=== PATIENT | female | born 1960 | race African-American/Black ===

== ENCOUNTER 2017-02-03 16:51 | Inpatient (IN) | payer OTHER ==
[~2017-02-03] VITALS: Ht 167.6 cm; Wt 172.4 kg
[2017-02-03 17:00] VITALS: BP 111/72
--- NOTE | 2017-02-03 17:57 | Emergency Room Report ---
History of Present Illness General Chief Complaint: Syncope Source: Patient, EMS Present Illness HPI 57-year-old female, history of hypertension, breast cancer status post surgery 4 years ago, not on chemotherapy, presenting with episode of syncope. The patient states that she was with her friends, suddenly felt very faint, became unresponsive, did not fall was on a wheelchair, lasted about 3-4 minutes. Patient was found to be in A. fib with RVR. Patient denies ever having had atrial fibrillation. Patient states that she is on aspirin. Denies ever having a clot in her legs or her lungs, no recent immobilization or surgery Allergies: Coded Allergies: LISINOPRIL (Verified Allergy, Unknown, 02/03/17) PENICILLINS (Verified Allergy, Unknown, 02/03/17) Patient History Past Medical History: see triage record Past Surgical History: none Pertinent Family History: none Reviewed Nursing Documentation: PMH: Agreed, PSxH: Agreed Nursing Documentation-PMH Past Medical History: No History, Except For Hx Hypertension: Yes Hx Diabetes: Yes Hx Cancer: Yes - BREASTS Review of Systems All Other Systems: negative except mentioned in HPI Physical Exam Vital Signs Date Time Temp Pulse Resp B/P (MAP) Pulse Ox O2 Delivery O2 Flow Rate FiO2 02/03/17 16:47 97.7 120 20 129/103 99 Room Air Sp02 EP Interpretation: reviewed, normal General Appearance: normal inspection, well appearing, no apparent distress, alert, GCS 15, non-toxic Head: normocephalic, atraumatic Eyes: bilateral eye normal inspection, bilateral eye PERRL, bilateral eye EOMI ENT: normal ENT inspection, normal pharynx, normal voice, moist mucus membranes Neck: normal inspection, full range of motion, supple Respiratory: normal inspection, lungs clear, normal breath sounds, no respiratory distress, no retraction, no wheezing, speaking full sentences, chest symmetrical Cardiovascular #1: no edema, normal capillary refill, tachycardia, irregularly irregular Cardiovascular #2: 2+ radial (R), 2+ radial (L) Gastrointestinal: normal inspection, non tender, soft, non-distended, no guarding Musculoskeletal: normal inspection, back normal, normal range of motion, non- tender Neurologic: normal inspection, alert, oriented x3, responsive, circulation representative III-XII nml as tested, motor strength/tone normal, sensory intact, speech normal Psychiatric: normal inspection, judgement/insight normal, memory normal Skin: normal inspection, normal color, no rash, warm/dry, well hydrated, normal turgor Procedures Critical Care Time Critical Care Time 40 minutes of CC time 57-year-old female, syncopal episode, felt to be in A. fib with RVR VS: Tachycardic, borderline hypotensive Airway patent. Not hypoxic. PLAN: IV access, labs, troponin, IV fluids, rate control medication Anticipate admission to [facility] vs. [facility] CC time also includes review of labs, review of EMR, discussion with family and paperwork from SNF, d/w hospitalist CC could include dosing of pressors, additional Abx CC time does not include procedures Medical Decision Making Diagnostic Impression: Primary Impression: Atrial fibrillation with rapid ventricular response Additional Impression: Syncope ER Course 57-year-old female with syncopal episode DDX: Vasovagal vs. orthostatic / hypovolemic/dehydration vs. cardiac arrhythmia (SVT , Afib) vs. cardiac (, ACS) vs. PE vs. metabolic (hypoglycemia, hypoxia), vs neuro (seizure, CVA, intracranial bleed) Plan: bgm, cbc, bmp, ekg, cxr consider IVF CT head will be held for now, there was no history of trauma, no neurological signs or symptoms currently ER course: Patient found to be in A. fib with RVR, heart rate ranging from 130s to 150s. Blood pressure is systolic 100, we'll give fluids No further syncopal episodes 0.5mg IV digoxin given PATIENT HR now better controlled HR 115. will admit Disposition: Patient requires admission to [facility] D/W hospitalist Dr Lindquist Please note that this Emergency Department Report was dictated using [email or web address] crib attendant technology software, occasionally this can lead to erroneous entry secondary to interpretation by the dictation equipment EKG Diagnostic Results EP Interpretation: Yes Rate: Tachycardic Rhythm: Atrial fibrillation with RVR ST Segments: ST depressions noted in leads 2 and 3 ASA given to patient: No Rhythm Strip EP Interpretation: Yes Rate: 140 Rhythm: NSR, no PVCs, no ectopy Chest X-ray CXR: Ordered: Yes 1 view Indication: Syncope EP interpretation: Yes Interpretation: Cardiomegaly Impression: Cardiomegaly Electronically signed by Jeffery Hernandez MD Laboratory Tests Test 02/03/17 17:35 12/27/17 19:16 White Blood Count 6.5 K/UL (4.8-10.8) Red Blood Count 5.54 M/UL (4.20-5.40) H Hemoglobin 14.8 G/DL (12.0-16.0) Hematocrit 49.3 % (37.0-47.0) H Mean Corpuscular Volume 89 FL (80-99) Mean Corpuscular Hemoglobin 26.7 PG (27.0-31.0) L Mean Corpuscular Hemoglobin Concent 30.1 G/DL (32.0-36.0) L Red Cell Distribution Width 14.5 % (11.6-14.8) Platelet Count 167 K/UL (150-450) Mean Platelet Volume 7.5 FL (6.5-10.1) Neutrophils (%) (Auto) 68.6 % (45.0-75.0) Lymphocytes (%) (Auto) 17.1 % (20.0-45.0) L Monocytes (%) (Auto) 11.1 % (1.0-10.0) H Eosinophils (%) (Auto) 0.9 % (0.0-3.0) Basophils (%) (Auto) 2.3 % (0.0-2.0) H Prothrombin Time 10.8 SEC (9.30-11.50) Prothrombin Time INR 1.0 (0.9-1.1) PTT 28 SEC (23-33) Sodium Level 141 MMOL/L (136-145) Potassium Level 3.5 MMOL/L (3.5-5.1) Chloride Level 102 MMOL/L (98-107) Carbon Dioxide Level 28 MMOL/L (21-32) Anion Gap 11 mmol/L (5-15) Blood Urea Nitrogen 18 mg/dL (7-18) Creatinine 1.3 MG/DL (0.55-1.30) Estimate Glomerular Filtration Rate 42.5 mL/min (>60) Glucose Level 164 MG/DL (74-106) H Calcium Level 7.7 MG/DL (8.5-10.1) L Total Bilirubin 0.4 MG/DL (0.2-1.0) Aspartate Amino Transferase (AST) 34 U/L (15-37) Alanine Aminotransferase (ALT) 25 U/L (12-78) Alkaline Phosphatase 122 U/L (46-116) H Troponin I 0.017 ng/mL (0.000-0.056) Pro-B-Type Natriuretic Peptide 590 pg/mL (0-125) H Total Protein 8.5 G/DL (6.4-8.2) H Albumin 3.5 G/DL (3.4-5.0) Globulin 5.0 g/dL Albumin/Globulin Ratio 0.7 (1.0-2.7) L Urine Color Pale yellow Urine Appearance Clear Urine pH 5 (4.5-8.0) Urine Specific [place] 1.005 (1.005-1.035) Urine Protein Negative (NEGATIVE) Urine Glucose (UA) Negative (NEGATIVE) Urine Ketones Negative (NEGATIVE) Urine Occult Blood Negative (NEGATIVE) Urine Nitrite Negative (NEGATIVE) Urine Bilirubin Negative (NEGATIVE) Urine Urobilinogen Normal MG/DL (0.0-1.0) Urine Leukocyte Esterase Negative (NEGATIVE) Last Vital Signs Date Time Temp Pulse Resp B/P (MAP) Pulse Ox O2 Delivery O2 Flow Rate FiO2 02/03/17 16:47 97.7 120 20 129/103 99 Room Air Disposition: ADMITTED INPATIENT Condition: Serious Jeffery Hernandez M.D. Feb 03, 2017 17:57
[2017-02-03 18:00] VITALS: BP 111/72
[2017-02-03 18:02] LABS: BASOPHILS % (AUTO) 2.3 % (0.0-2.0); EOSINOPHILS % (AUTO) 0.9 % (0.0-3.0); HEMATOCRIT 49.3 % (37.0-47.0); HEMOGLOBIN 14.8 G/DL (12.0-16.0); LYMPHOCYTES % (AUTO) 17.1 % (20.0-45.0); MEAN CORPUSCULAR VOLUME 89 FL (80-99); MONOCYTES % (AUTO) 11.1 % (1.0-10.0); NEUTROPHILS % (AUTO) 68.6 % (45.0-75.0); PLATELET COUNT 167 K/UL (150-450); RED BLOOD COUNT 5.54 M/UL (4.20-5.40); RED CELL DISTRIBUTION WIDTH 14.5 % (11.6-14.8); WHITE BLOOD COUNT 6.5 K/UL (4.8-10.8)
[2017-02-03 18:10] LABS: ANION GAP 11 mmol/L (5-15); BLOOD UREA NITROGEN 18 mg/dL (7-18); CALCIUM 7.7 MG/DL (8.5-10.1); CARBON DIOXIDE 28 MMOL/L (21-32); CHLORIDE 102 MMOL/L (98-107); CREATININE 1.3 MG/DL (0.55-1.30); POTASSIUM 3.5 MMOL/L (3.5-5.1); SODIUM 141 MMOL/L (136-145)
[2017-02-03 18:25] LABS: ALANINE AMINOTRANSFERASE 25 U/L (12-78); ALBUMIN 3.5 G/DL (3.4-5.0); ALBUMIN/GLOBULIN RATIO 0.7 (1.0-2.7); ALKALINE PHOSPHATASE 122 U/L (46-116); ASPARTATE AMINO TRANSFERASE 34 U/L (15-37); BILIRUBIN,TOTAL 0.4 MG/DL (0.2-1.0)
[2017-02-03 19:00] VITALS: BP_SYST 112; BP_SYST 120; BP_DIAS 70; BP_DIAS 95
[2017-02-03] MEDS ORDERED: Digoxin 0.5mg/2ml Inj IVP ONE (19:30)
[2017-02-03 19:50] LABS: APPEARANCE,URINE CLEAR; BILIRUBIN, URINE NEGATIVE (NEGATIVE); COLOR,URINE PALE YELLOW; GLUCOSE, URINE (UA) NEGATIVE (NEGATIVE); KETONES,URINE NEGATIVE (NEGATIVE); LEUKOCYTE ESTERASE ,URINE NEGATIVE (NEGATIVE); NITRITE,URINE NEGATIVE (NEGATIVE); PH,URINE 5 (4.5-8.0); PROTEIN,URINE NEGATIVE (NEGATIVE); UROBILINOGEN,URINE NORMAL MG/DL (0.0-1.0)
[2017-02-03 20:00] VITALS: BP 107/81
[2017-02-03] MEDS ORDERED: ECOTRIN325 MG ORAL (20:45)
[2017-02-03] MEDS ORDERED: IBUPROFEN600 MG ORAL (20:57)
[2017-02-03] MEDS ORDERED: FLONASE SENSIM9.9 ML NS (20:57)
[2017-02-03] MEDS ORDERED: FELODIPINE ER10 MG PO (20:57)
[2017-02-03] MEDS ORDERED: SPIRONOLACTONE25 MG ORAL (20:57)
[2017-02-03] MEDS ORDERED: ANASTROZOLE1 MG PO (20:57)
[2017-02-03] MEDS ORDERED: MULTI-VITAMIN1 EACH PO (20:57)
[2017-02-03] MEDS ORDERED: NAPROXEN500 M2 ORAL ×2 (20:57→22:14)
[2017-02-03] MEDS ORDERED: K-TAB10 MEQ PO (20:57)
[2017-02-03 21:00] VITALS: BP 102/57
[2017-02-03 21:45] VITALS: BP 130/70
[2017-02-03] MEDS ORDERED: K-DUR10 ME1 ORAL (22:14)
[2017-02-03] MEDS ORDERED: ASPIR 8181 MG ORAL (22:14)
[2017-02-03] MEDS ORDERED: Nitroglycerin Subl 0.4mg tab SL PRN (22:15)
[2017-02-03] MEDS ORDERED: Zolpidem 5mg tab ORAL PRN (22:15)
[2017-02-03] MEDS ORDERED: Acetaminophen 650 MG SUPP RECTAL PRN (22:15)
[2017-02-03] MEDS ORDERED: Enoxaparin 150mg Inj SUBQ SCH (22:15)
[2017-02-03] MEDS ORDERED: Enoxaparin 100mg Inj SUBQ SCH (23:30)
[2017-02-03] MEDS: Metoprolol 25mg tab ORAL SCH (23:34)
[2017-02-03] MEDS: D5 1/2NS w/KCl 20mEq 1,000 ML IV SCH (23:35)
[2017-02-04] VITALS: BP 119/77
[2017-02-04 01:55] LABS: HEMATOCRIT 43.3 % (37.0-47.0); HEMOGLOBIN 13.9 G/DL (12.0-16.0); MEAN CORPUSCULAR VOLUME 89 FL (80-99); PLATELET COUNT 177 K/UL (150-450); RED BLOOD COUNT 4.87 M/UL (4.20-5.40); RED CELL DISTRIBUTION WIDTH 14.6 % (11.6-14.8); WHITE BLOOD COUNT 4.2 K/UL (4.8-10.8)
[2017-02-04 02:05] LABS: INR 1.1 (0.9-1.1)
[2017-02-04 02:15] LABS: ALANINE AMINOTRANSFERASE 17 U/L (12-78); ALBUMIN 2.7 G/DL (3.4-5.0); ALBUMIN/GLOBULIN RATIO 0.5 (1.0-2.7); ALKALINE PHOSPHATASE 100 U/L (46-116); ANION GAP 8 mmol/L (5-15); ASPARTATE AMINO TRANSFERASE 28 U/L (15-37); BILIRUBIN,TOTAL 0.3 MG/DL (0.2-1.0); BLOOD UREA NITROGEN 14 mg/dL (7-18); CALCIUM 7.5 MG/DL (8.5-10.1); CARBON DIOXIDE 27 MMOL/L (21-32); CHLORIDE 108 MMOL/L (98-107); CHOLESTEROL 92 MG/DL (< 200); PHOSPHORUS 3.8 MG/DL (2.5-4.9); POTASSIUM 3.3 MMOL/L (3.5-5.1); SODIUM 143 MMOL/L (136-145)
[2017-02-04 04:00] VITALS: BP 143/72
[2017-02-04 08:00] VITALS: BP 130/83
--- NOTE | 2017-02-04 08:37 | Diagnostic Imaging Report ---
Indication: Cough Technique: One view of the chest Comparison: none Findings: Body habitus limits evaluation. Heart is enlarged. Lungs and pleural spaces are clear. Impression: No acute process Cardiomegaly
[2017-02-04] MEDS ORDERED: Enoxaparin 100mg Inj SUBQ SCH (09:00)
[2017-02-04] MEDS: Aspirin EC 325mg tab ORAL SCH (09:12)
[2017-02-04] MEDS: Spironolactone 25mg tab ORAL SCH (09:13)
[2017-02-04] MEDS: Anastrazole 1mg tab ORAL SCH (09:13)
[2017-02-04] MEDS: Metoprolol 25mg tab ORAL SCH ×2 (09:14→20:00)
[2017-02-04 12:00] VITALS: BP 124/76
[2017-02-04] MEDS: D5 1/2NS w/KCl 20mEq 1,000 ML IV SCH (12:09)
[2017-02-04] MEDS: Enoxaparin 100mg Inj SUBQ SCH ×2 (12:12→22:30)
[2017-02-04] MEDS: Enoxaparin Sodium 300mg/3ml vial SUBQ SCH ×2 (12:13→22:30)
[2017-02-04 16:00] VITALS: BP 123/69
--- NOTE | 2017-02-04 16:38 | History & Physical ---
History and Physical History & Physicial Dictated for Int Med-Dr Lindquist no. [id number]. KHUSHI BAE Feb 04, 2017 16:38
--- NOTE | 2017-02-04 16:51 | Cardiac Electrophysiology PN ---
Subjective Subjective [id number] Objective Last 24 Hour Vital Signs Date Time Temp Pulse Resp B/P (MAP) Pulse Ox O2 Delivery O2 Flow Rate FiO2 02/04/17 12:00 85 02/04/17 12:00 98.1 91 18 124/76 99 Room Air 02/04/17 09:14 98 130/83 02/04/17 08:00 92 02/04/17 08:00 98.4 98 18 130/83 99 Room Air 02/04/17 04:00 98.2 85 16 143/72 100 Room Air 02/04/17 04:00 85 02/04/17 00:00 97.9 102 16 119/77 99 Room Air 02/04/17 00:00 119 02/03/17 23:34 117 130/70 02/03/17 21:45 98.1 117 16 130/70 99 Room Air 02/03/17 21:35 97.7 113 16 102/57 99 Room Air 02/03/17 21:00 97.7 113 16 102/57 99 Room Air 02/03/17 20:14 139 02/03/17 20:00 97.7 135 20 107/81 98 Room Air 02/03/17 19:00 128 18 112/95 99 Room Air 02/03/17 19:00 97.7 143 18 120/70 99 Room Air 02/03/17 18:00 130 20 111/72 98 Room Air 02/03/17 17:00 133 16 111/72 99 Room Air Intake and Output 02/03/17 02/04/17 19:00 07:00 Intake Total 1000 ml 1579 ml Balance 1000 ml 1579 ml Intake Oral 24 ml IV Total 1000 ml 1555 ml # Voids 6 Laboratory Tests Test 02/03/17 17:35 02/03/17 19:16 02/04/17 01:25 White Blood Count 6.5 K/UL (4.8-10.8) 4.2 K/UL (4.8-10.8) L Red Blood Count 5.54 M/UL (4.20-5.40) H 4.87 M/UL (4.20-5.40) Hemoglobin 14.8 G/DL (12.0-16.0) 13.9 G/DL (12.0-16.0) Hematocrit 49.3 % (37.0-47.0) H 43.3 % (37.0-47.0) Mean Corpuscular Volume 89 FL (80-99) 89 FL (80-99) Mean Corpuscular Hemoglobin 26.7 PG (27.0-31.0) L 28.6 PG (27.0-31.0) Mean Corpuscular Hemoglobin Concent 30.1 G/DL (32.0-36.0) L 32.2 G/DL (32.0-36.0) Red Cell Distribution Width 14.5 % (11.6-14.8) 14.6 % (11.6-14.8) Platelet Count 167 K/UL (150-450) 177 K/UL (150-450) Mean Platelet Volume 7.5 FL (6.5-10.1) 8.2 FL (6.5-10.1) Neutrophils (%) (Auto) 68.6 % (45.0-75.0) % (45.0-75.0) Lymphocytes (%) (Auto) 17.1 % (20.0-45.0) L % (20.0-45.0) Monocytes (%) (Auto) 11.1 % (1.0-10.0) H % (1.0-10.0) Eosinophils (%) (Auto) 0.9 % (0.0-3.0) % (0.0-3.0) Basophils (%) (Auto) 2.3 % (0.0-2.0) H % (0.0-2.0) Prothrombin Time 10.8 SEC (9.30-11.50) 11.4 SEC (9.30-11.50) Prothromb Time International Ratio 1.0 (0.9-1.1) 1.1 (0.9-1.1) Activated Partial Thromboplast Time 28 SEC (23-33) 33 SEC (23-33) Sodium Level 141 MMOL/L (136-145) 143 MMOL/L (136-145) Potassium Level 3.5 MMOL/L (3.5-5.1) 3.3 MMOL/L (3.5-5.1) L Chloride Level 102 MMOL/L (98-107) 108 MMOL/L (98-107) H Carbon Dioxide Level 28 MMOL/L (21-32) 27 MMOL/L (21-32) Anion Gap 11 mmol/L (5-15) 8 mmol/L (5-15) Blood Urea Nitrogen 18 mg/dL (7-18) 14 mg/dL (7-18) Creatinine 1.3 MG/DL (0.55-1.30) 1.0 MG/DL (0.55-1.30) Estimat Glomerular Filtration Rate 42.5 mL/min (>60) > 60 mL/min (>60) Glucose Level 164 MG/DL (74-106) H 149 MG/DL (74-106) H Calcium Level 7.7 MG/DL (8.5-10.1) L 7.5 MG/DL (8.5-10.1) L Total Bilirubin 0.4 MG/DL (0.2-1.0) 0.3 MG/DL (0.2-1.0) Aspartate Amino Transf (AST/SGOT) 34 U/L (15-37) 28 U/L (15-37) Alanine Aminotransferase (ALT/SGPT) 25 U/L (12-78) 17 U/L (12-78) Alkaline Phosphatase 122 U/L (46-116) H 100 U/L (46-116) Troponin I 0.017 ng/mL (0.000-0.056) 0.021 ng/mL (0.000-0.056) Pro-B-Type Natriuretic Peptide 590 pg/mL (0-125) H Total Protein 8.5 G/DL (6.4-8.2) H 7.7 G/DL (6.4-8.2) Albumin 3.5 G/DL (3.4-5.0) 2.7 G/DL (3.4-5.0) L Globulin 5.0 g/dL 5.0 g/dL Albumin/Globulin Ratio 0.7 (1.0-2.7) L 0.5 (1.0-2.7) L Urine Color Pale yellow Urine Appearance Clear Urine pH 5 (4.5-8.0) Urine Specific [place] 1.005 (1.005-1.035) Urine Protein Negative (NEGATIVE) Urine Glucose (UA) Negative (NEGATIVE) Urine Ketones Negative (NEGATIVE) Urine Occult Blood Negative (NEGATIVE) Urine Nitrite Negative (NEGATIVE) Urine Bilirubin Negative (NEGATIVE) Urine Urobilinogen Normal MG/DL (0.0-1.0) Urine Leukocyte Esterase Negative (NEGATIVE) Phosphorus Level 3.8 MG/DL (2.5-4.9) Magnesium Level 1.6 MG/DL (1.8-2.4) L Cholesterol Level 92 MG/DL (< 200) Thyroid Stimulating Hormone (TSH) 0.999 uiU/mL (0.358-3.740) YEFRI LABOY Feb 04, 2017 16:51
[2017-02-04 20:00] VITALS: BP 120/78
--- NOTE | 2017-02-04 23:15 | History and Physical Report ---
DATE OF ADMISSION: 02/03/2017 CHIEF COMPLAINT: The patient is a 57-year-old female, who presents with chief complaint of syncopal episode. HISTORY OF PRESENT ILLNESS: The patient saw her primary care physician yesterday, 02/03/2017. The patient was complaining of upper respiratory tract infection symptoms. The patient was told her blood pressure was in the 80s systolic. The patient was told to hold her blood pressure medicines yesterday, 02/03/2017. The patient then went to the pharmacy to fill her prescriptions. The patient had a syncopal episode, which was witnessed by her sister. The patient passed out for approximately five minutes. The patient awoke with slurred speech. The patient describes her feeling as being unsteady. The patient denies the room spinning. The patient presented to [facility] emergency room. The patient was found to be in atrial fibrillation with rapid ventricular rate. The patient is admitted for atrial fibrillation with rapid ventricular rate and syncopal episode. REVIEW OF SYSTEMS: CONSTITUTIONAL: The patient denies weight loss or weight gain. The patient denies fevers or chills. HEENT: The patient denies ear or throat pain. The patient denies headache. CARDIOVASCULAR: The patient denies palpitations or chest pain. CHEST: The patient denies wheezing or shortness of breath. ABDOMEN: The patient denies nausea, vomiting, diarrhea, or constipation. GENITOURINARY: The patient denies dysuria or increased frequency of urination. NEUROMUSCULAR: The patient complains of syncopal episode as above. The patient complains of ataxia as above. The patient denies seizures or generalized weakness. PAST MEDICAL HISTORY: Significant for: 1. Type 2 diabetes. 2. Hypertension. 3. History of right breast cancer in 2013. PAST SURGICAL HISTORY: Significant for lumpectomy of the right breast in 2013. CURRENT MEDICATIONS: 1. Flonase one puff in each nostril twice daily p.r.n. 2. Potassium chloride 10 mEq p.o. daily. 3. Flexeril 10 mg p.o. q.8 h. p.r.n. 4. Naprosyn 500 mg one tablet p.o. twice daily p.r.n. 5. Ibuprofen 600 mg p.o. q.6 h. p.r.n. 6. Arimidex 1 mg p.o. daily. 7. Felodipine 10 mg two tablets p.o daily. 8. Spironolactone 25 mg p.o. daily. 9. Multivitamin p.o. daily. 10. Aspirin 81 mg one tablet p.o. daily. ALLERGIES: 1. Lisinopril. 2. Penicillin. 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 The patient denies tobacco or alcohol use. PHYSICAL EXAMINATION: VITAL SIGNS: Temperature 97.9, respirations 16, pulse 102-119, and blood pressure 119/77. GENERAL: The patient is a well-developed, well-nourished female, in no apparent distress. HEENT: Eyes, pupils are equal and responsive to light and accommodation. Extraocular movements are intact. NECK: Supple without lymphadenopathy. CHEST: Lungs are clear to auscultation bilaterally without wheezes or rales. CARDIOVASCULAR: Regular rate. S1 and S2 are normal without murmurs, rubs, or gallops. ABDOMEN: Soft, nontender, and nondistended. Positive bowel sounds. No evidence of hepatosplenomegaly. Currently, no rebound or guarding noted. EXTREMITIES: Negative for clubbing, cyanosis, or edema. RECTAL/GENITAL: Refused. NEUROLOGIC: Cranial nerves II through XII are grossly intact without focal deficits. Motor strength is 5/5 bilaterally. Deep tendon reflexes are 2+ plantar. LABORATORY AND DIAGNOSTIC STUDIES: WBC 6.5, hemoglobin 14.8, hematocrit 49.3, and platelets 167,000. Sodium 141, potassium 3.5, chloride 102, CO2 28, BUN 18, creatinine 1.3, and glucose 164. Troponin 0.017. BNP 590. A venous duplex Doppler of bilateral lower extremities revealed a nonocclusive thrombosis in the distal common femoral to proximal superficial femoral vein on the left leg. An EKG demonstrated atrial fibrillation with heart rate of approximately 115. There were no acute ST changes or Q-waves noted. An echocardiogram revealed ejection fraction of 45% to 50%. ASSESSMENT: This is a 57-year-old female with: 1. Ataxia. 2. Syncope. 3. Atrial fibrillation with rapid ventricular rate. 4. Deep venous thrombosis in the left common femoral artery. 5. Diabetes type 2. 6. Hypertension. 7. History of right breast cancer. 8. Obesity. TREATMENT: 1. Ataxia/syncope, this is probably secondary to atrial fibrillation. This may also be secondary to transient ischemic attack. A Neurology consultation is pending with Dr. Emiliano Gallo. A Cardiology consultation has been obtained with Dr. Hang Green. 2. Atrial fibrillation with rapid ventricular rate. A Cardiology consultation has been obtained with Dr. Hang Green. The patient received digoxin in the emergency room. The patient's current heart rate is in the 90s. Serial troponin levels will be performed. We will follow recommendations of Cardiology. Anticoagulation is an issue secondary to the patient's history of deep venous thrombosis of the left leg. A Hematology/Oncology is pending for anticoagulation therapy. 3. Deep venous thrombosis in the common femoral vein of the left leg as above. A Hematology/Oncology consultation has been obtained with Dr. Black. The patient will require anticoagulation in light of deep venous thrombosis and atrial fibrillation. 4. Diabetes type 2. The patient has been placed on a regular insulin sliding scale. 5. Hypertension. Continue felodipine as above. 6. History of right breast cancer, status post lumpectomy. Continue Arimidex as above. 7. Obesity. Cholo Coreas M.D. DR: Freya JOB#: [id number] CC:
[2017-02-05] VITALS: BP 106/71
[2017-02-05] MEDS: D5 1/2NS w/KCl 20mEq 1,000 ML IV SCH ×3 (01:04→20:23)
--- NOTE | 2017-02-05 01:45 | Consultation ---
DATE OF CONSULTATION: 02/04/2017 CARDIOLOGY CONSULTATION CONSULTING PHYSICIAN: Hang Green M.D. REFERRING PHYSICIAN: Myles Lindquist M.D. REASON FOR CONSULTATION: Atrial fibrillation with rapid ventricular response and hypertension. HISTORY OF PRESENT ILLNESS: The patient is a 57-year-old lady with history of hypertension and breast cancer, status post surgery four years ago, not on chemotherapy, presented after she had syncopal episodes. The patient with her friends where she felt lightheaded and faint and became unresponsive even though she did not fall as she was in a wheelchair. The patient was brought to the emergency room and found to be in atrial fibrillation with rapid ventricular response. Lower extremity Doppler showed DVT. The patient denies ever having clots in her legs or lungs. The patient was admitted and a Cardiology consultation was obtained for further evaluation. PAST MEDICAL HISTORY: 1. Hypertension. 2. Diabetes. 3. History of breast cancer, status post surgery. 4. Morbid obesity. FAMILY HISTORY: Noncontributory. SOCIAL HISTORY: She lives at home. Does not smoke or drink alcohol. REVIEW OF SYSTEMS: Negative other than what was mentioned in the history of present illness. PHYSICAL EXAMINATION: VITAL SIGNS: Blood pressure is 124/76, pulse is 91, respirations 18, and she is afebrile. HEAD AND NECK: Shows no JVD. LUNGS: Clear. CARDIOVASCULAR: Shows regular S1 and S2 with no gallop. ABDOMEN: Morbidly obese. EXTREMITIES: No pitting edema. LABORATORY DATA: Labs shows a white count of 4.2, hemoglobin 13.9, hematocrit 42.3, and platelets of 177. Sodium 142, potassium 3.3, BUN 14, creatinine 1, and glucose of 149. Troponin is negative x2. ASSESSMENT AND PLAN: 1. Newly diagnosed atrial fibrillation with rapid ventricular response. The patient was ruled out for myocardial infarction. Echocardiogram showed ejection fraction of 45%. I will start the patient on metoprolol 25 mg daily for rate control. The patient also needs to be on anticoagulation for atrial fibrillation in view of her female gender as well as deep vein thrombosis. The patient also states that her father also had atrial fibrillation and received a permanent pacemaker. 2. Cardiomyopathy with ejection fraction was 45%. Continue Aldactone and metoprolol. I will add lisinopril and Lasix to her medical regimen. 2.5 mg of intravenous digoxin for atrial fibrillation and likely benefit from p.o. digoxin as well. 3. Lower extremity deep vein thrombosis, on anticoagulation. 4. History of hypertension. Continue current medical regimen with metoprolol, Aldactone, and lisinopril as well. 5. History of breast cancer. Thank you very much, Dr. Lindquist, for allowing me to participate in the care of this patient. Please do not hesitate to contact me for any questions regarding my evaluation. Hang Green M.D. DR: PARVEZ JOB#: [id number] CC:
[2017-02-05 04:00] VITALS: BP 123/69
[2017-02-05 04:27] LABS: BASOPHILS % (AUTO) 1.7 % (0.0-2.0); EOSINOPHILS % (AUTO) 4.6 % (0.0-3.0); HEMATOCRIT 45.9 % (37.0-47.0); HEMOGLOBIN 14.7 G/DL (12.0-16.0); LYMPHOCYTES % (AUTO) 48.5 % (20.0-45.0); MEAN CORPUSCULAR VOLUME 89 FL (80-99); MONOCYTES % (AUTO) 16.2 % (1.0-10.0); PLATELET COUNT 175 K/UL (150-450); RED BLOOD COUNT 5.13 M/UL (4.20-5.40); RED CELL DISTRIBUTION WIDTH 14.3 % (11.6-14.8)
[2017-02-05 04:34] LABS: INR 1.1 (0.9-1.1)
[2017-02-05 04:49] LABS: ANION GAP 9 mmol/L (5-15); BLOOD UREA NITROGEN 13 mg/dL (7-18); CALCIUM 7.6 MG/DL (8.5-10.1); CARBON DIOXIDE 24 MMOL/L (21-32); CHLORIDE 108 MMOL/L (98-107); CREATININE 0.9 MG/DL (0.55-1.30); POTASSIUM 3.6 MMOL/L (3.5-5.1); SODIUM 141 MMOL/L (136-145)
[2017-02-05 08:00] VITALS: BP 113/69
[2017-02-05] MEDS: Anastrazole 1mg tab ORAL SCH (09:24)
[2017-02-05] MEDS: Aspirin EC 325mg tab ORAL SCH (09:24)
[2017-02-05] MEDS: Losartan 25mg tab ORAL SCH (09:25)
[2017-02-05] MEDS: Spironolactone 25mg tab ORAL SCH (09:25)
[2017-02-05] MEDS: Metoprolol 25mg tab ORAL SCH (09:26)
[2017-02-05] MEDS: Enoxaparin 100mg Inj SUBQ SCH ×2 (11:46→23:13)
[2017-02-05] MEDS: Enoxaparin Sodium 300mg/3ml vial SUBQ SCH ×2 (11:48→23:14)
[2017-02-05 12:00] VITALS: BP 143/85
[2017-02-05 16:00] VITALS: BP 113/77
--- NOTE | 2017-02-05 17:02 | Internal Med Progress Note ---
Subjective Date of Service: Feb 05, 2017 Physician Name Khushi Bae Attending Physician Myles Lindquist MD Current Medications Medications (Trade) Dose Ordered Sig/Carlos Route PRN Reason Start Time Stop Time Status Last Admin Dose Admin Acetaminophen (Tylenol) 650 mg Q4H PRN ORAL Mild Pain (Pain Scale 1-3) 02/03/17 22:15 03/05/17 22:14 Acetaminophen (Tylenol) 650 mg Q4H PRN ORAL fever 02/03/17 22:15 03/05/17 22:14 Acetaminophen (Tylenol) 650 mg Q4H PRN RECTAL Mild Pain (Pain Scale 1-3) 02/03/17 22:15 03/05/17 22:14 Anastrozole (Arimidex) 1 mg DAILY ORAL 02/04/17 09:00 03/06/17 08:59 02/05/17 09:24 Aspirin (Ecotrin) 81 mg DAILY ORAL 02/04/17 09:00 03/06/17 08:59 02/05/17 09:24 Dextrose (Dextrose 50%) STAT PRN IV Hypoglycemia 02/03/17 22:15 03/05/17 22:14 Dextrose/ Electrolytes 1,000 ml @ 75 mls/hr [id number] IV 02/03/17 23:11 03/05/17 23:10 02/05/17 01:04 Digoxin (Lanoxin) 0.25 mg DAILY ORAL 02/05/17 09:00 03/07/17 08:59 02/05/17 09:26 Enoxaparin Sodium (Lovenox) 70 mg Q12H SUBQ 02/04/17 11:00 03/06/17 10:59 02/05/17 11:48 Enoxaparin Sodium (Lovenox) 100 mg Q12H SUBQ 02/04/17 11:00 03/06/17 10:59 02/05/17 11:46 Ibuprofen (Advil) 600 mg Q8H PRN ORAL For Pain 02/03/17 22:15 03/05/17 22:14 Losartan Potassium (Cozaar) 25 mg DAILY ORAL 02/05/17 09:00 03/07/17 08:59 02/05/17 09:25 Metoprolol Tartrate (Lopressor) 25 mg EVERY 12 HOURS ORAL 02/03/17 22:15 03/05/17 22:14 02/05/17 09:26 Nitroglycerin (Ntg) 0.4 mg Q5M PRN SL Prn Chest Pain 02/03/17 22:15 03/05/17 22:14 Ondansetron HCl (Zofran) 4 mg Q6H PRN IVP Nausea & Vomiting 02/03/17 22:15 03/05/17 22:14 Potassium Chloride (K-Dur) 20 meq DAILY ORAL 02/04/17 09:00 03/06/17 08:59 02/05/17 09:25 Spironolactone (Aldactone) 25 mg DAILY ORAL 02/04/17 09:00 03/06/17 08:59 02/05/17 09:25 Zolpidem Tartrate (Ambien) 5 mg DAILYPRN PRN ORAL Insomnia 02/03/17 22:15 02/10/17 22:14 02/04/17 01:31 Allergies: Coded Allergies: LISINOPRIL (Verified Allergy, Unknown, 02/03/17) PENICILLINS (Verified Allergy, Unknown, 02/03/17) ROS Limited/Unobtainable: No Constitutional: Reports: no symptoms HEENT: Reports: no symptoms Cardiovascular: Reports: no symptoms Respiratory: Reports: no symptoms Gastrointestinal/Abdominal: Reports: no symptoms Genitourinary: Reports: no symptoms Neurologic/Psychiatric: Reports: no symptoms Subjective 57 YO F admitted with syncopal episode. Now atrial fibrillation with rapid ventricular rate and DVT left leg. Cover for Int Woody-Dr Lindquist. Continues tachycardia to 115 BPM Objective Last Vital Signs Date Time Temp Pulse Resp B/P (MAP) Pulse Ox O2 Delivery O2 Flow Rate FiO2 02/05/17 12:00 92 02/05/17 12:00 98.4 21 143/85 99 Room Air General Appearance: WD/WN, no apparent distress, alert, obese EENT: PERRL/EOMI, normal ENT inspection, TMs normal Neck: non-tender, normal alignment, supple, normal inspection Cardiovascular: normal peripheral pulses, normal rate, no gallop/murmur, no JVD , irregularly irregular Respiratory/Chest: chest wall non-tender, lungs clear, normal breath sounds, no respiratory distress, no accessory muscle use Abdomen: normal bowel sounds, non tender, soft, no organomegaly, no mass Extremities: normal range of motion 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, no motor/sensory deficits Skin: normal pigmentation, warm/dry Laboratory Tests Test 02/05/17 03:25 White Blood Count 4.0 K/UL (4.8-10.8) L Red Blood Count 5.13 M/UL (4.20-5.40) Hemoglobin 14.7 G/DL (12.0-16.0) Hematocrit 45.9 % (37.0-47.0) Mean Corpuscular Volume 89 FL (80-99) Mean Corpuscular Hemoglobin 28.7 PG (27.0-31.0) Mean Corpuscular Hemoglobin Concent 32.1 G/DL (32.0-36.0) Red Cell Distribution Width 14.3 % (11.6-14.8) Platelet Count 175 K/UL (150-450) Mean Platelet Volume 9.1 FL (6.5-10.1) Neutrophils (%) (Auto) 29.0 % (45.0-75.0) L Lymphocytes (%) (Auto) 48.5 % (20.0-45.0) H Monocytes (%) (Auto) 16.2 % (1.0-10.0) H Eosinophils (%) (Auto) 4.6 % (0.0-3.0) H Basophils (%) (Auto) 1.7 % (0.0-2.0) Prothrombin Time 11.1 SEC (9.30-11.50) Prothromb Time International Ratio 1.1 (0.9-1.1) Activated Partial Thromboplast Time 35 SEC (23-33) H Sodium Level 141 MMOL/L (136-145) Potassium Level 3.6 MMOL/L (3.5-5.1) Chloride Level 108 MMOL/L (98-107) H Carbon Dioxide Level 24 MMOL/L (21-32) Anion Gap 9 mmol/L (5-15) Blood Urea Nitrogen 13 mg/dL (7-18) Creatinine 0.9 MG/DL (0.55-1.30) Estimat Glomerular Filtration Rate > 60 mL/min (>60) Glucose Level 131 MG/DL (74-106) H Calcium Level 7.6 MG/DL (8.5-10.1) L Troponin I 0.022 ng/mL (0.000-0.056) Intake and Output 02/04/17 02/05/17 19:00 07:00 Intake Total 1850 ml 900 ml Balance 1850 ml 900 ml Intake Oral 950 ml IV Total 900 ml 900 ml # Voids 5 2 Assessment/Plan Problem List: (1) Left femoral vein DVT Assessment & Plan: Continue lovenox for now. Await hematology consult. (2) Diabetes mellitus, type II (3) HTN (hypertension) Assessment & Plan: Continue felodipine (4) Breast cancer, right (5) Obesity (6) Syncope (7) Atrial fibrillation with rapid ventricular response Assessment & Plan: Continues tachycaardic. Continue digoxin. see cardiology note. Status: not improved KHUSHI BAE Feb 05, 2017 17:02
--- NOTE | 2017-02-05 17:13 | Consultation ---
Consult Note Consult Note JOB ID: [id number] Charles Black Feb 05, 2017 17:13
--- NOTE | 2017-02-05 17:55 | Cardiac Electrophysiology PN ---
Assessment/Plan Assessment/Plan 1. Newly diagnosed atrial fibrillation with rapid ventricular response. The patient was ruled out for myocardial infarction. Echocardiogram showed ejection fraction of 45%. Increase metoprolol to 50 bid and Digoxin 0.25 daily. On Lovenox and coumadin. 2. Cardiomyopathy with ejection fraction was 45%. Continue Aldactone and metoprolol, Diovan and Lasix and digoxin as well. 3. Lower extremity deep vein thrombosis, on anticoagulation. 4. History of hypertension. Continue current medical regimen with metoprolol, Aldactone, and ARBas well. 5. History of breast cancer. Subjective Subjective Still in atrial fib and HR above 100. Objective Last 24 Hour Vital Signs Date Time Temp Pulse Resp B/P (MAP) Pulse Ox O2 Delivery O2 Flow Rate FiO2 02/05/17 16:00 98.7 92 21 113/77 98 Room Air 02/05/17 12:00 92 02/05/17 12:00 98.4 115 21 143/85 99 Room Air 02/05/17 09:26 109 02/05/17 09:26 109 113/69 02/05/17 09:25 113/69 02/05/17 08:00 97.0 109 21 113/69 98 Room Air 02/05/17 08:00 97 02/05/17 04:00 98.2 105 20 123/69 99 02/05/17 04:00 96 02/05/17 00:00 98.7 85 20 106/71 97 Room Air 02/05/17 00:00 84 02/04/17 20:00 83 02/04/17 20:00 94 120/88 02/04/17 20:00 98.4 96 20 120/78 97 Room Air Intake and Output 02/04/17 02/05/17 19:00 07:00 Intake Total 1850 ml 900 ml Balance 1850 ml 900 ml Intake Oral 950 ml IV Total 900 ml 900 ml # Voids 5 2 Laboratory Tests Test 02/05/17 03:25 White Blood Count 4.0 K/UL (4.8-10.8) L Red Blood Count 5.13 M/UL (4.20-5.40) Hemoglobin 14.7 G/DL (12.0-16.0) Hematocrit 45.9 % (37.0-47.0) Mean Corpuscular Volume 89 FL (80-99) Mean Corpuscular Hemoglobin 28.7 PG (27.0-31.0) Mean Corpuscular Hemoglobin Concent 32.1 G/DL (32.0-36.0) Red Cell Distribution Width 14.3 % (11.6-14.8) Platelet Count 175 K/UL (150-450) Mean Platelet Volume 9.1 FL (6.5-10.1) Neutrophils (%) (Auto) 29.0 % (45.0-75.0) L Lymphocytes (%) (Auto) 48.5 % (20.0-45.0) H Monocytes (%) (Auto) 16.2 % (1.0-10.0) H Eosinophils (%) (Auto) 4.6 % (0.0-3.0) H Basophils (%) (Auto) 1.7 % (0.0-2.0) Prothrombin Time 11.1 SEC (9.30-11.50) Prothromb Time International Ratio 1.1 (0.9-1.1) Activated Partial Thromboplast Time 35 SEC (23-33) H Sodium Level 141 MMOL/L (136-145) Potassium Level 3.6 MMOL/L (3.5-5.1) Chloride Level 108 MMOL/L (98-107) H Carbon Dioxide Level 24 MMOL/L (21-32) Anion Gap 9 mmol/L (5-15) Blood Urea Nitrogen 13 mg/dL (7-18) Creatinine 0.9 MG/DL (0.55-1.30) Estimat Glomerular Filtration Rate > 60 mL/min (>60) Glucose Level 131 MG/DL (74-106) H Calcium Level 7.6 MG/DL (8.5-10.1) L Troponin I 0.022 ng/mL (0.000-0.056) Hepatitis A IgM Antibody Pending Hepatitis B Surface Antigen Pending Hepatitis B Core IgM Antibody Pending Hepatitis C Antibody Pending HIV (1&2) Antibody Rapid Pending Objective HEAD AND NECK: Shows no JVD. LUNGS: Clear. CARDIOVASCULAR: Irregular S1 and S2 with no gallop. ABDOMEN: Morbidly obese. EXTREMITIES: No pitting edema. YEFRI LABOY Feb 05, 2017 17:55
[2017-02-05] MEDS ORDERED: Warfarin Sodium 5mg ORAL ONE (18:30)
[2017-02-05 20:00] VITALS: BP 120/77
[2017-02-05] MEDS: Metoprolol Tartrate 50mg tab ORAL SCH (20:24)
[2017-02-06] VITALS (7 sets, daily range): BP systolic 110–136; BP diastolic 70–93
[2017-02-06 04:51] LABS: INR 1.1 (0.9-1.1)
[2017-02-06] MEDS: Anastrazole 1mg tab ORAL SCH (09:22)
[2017-02-06] MEDS: Losartan 25mg tab ORAL SCH (09:22)
[2017-02-06] MEDS: Spironolactone 25mg tab ORAL SCH (09:22)
[2017-02-06] MEDS: Metoprolol Tartrate 50mg tab ORAL SCH ×2 (09:23→20:37)
[2017-02-06] MEDS: Aspirin EC 325mg tab ORAL SCH (09:23)
[2017-02-06] MEDS: Enoxaparin 100mg Inj SUBQ SCH (11:05)
[2017-02-06] MEDS: Enoxaparin Sodium 300mg/3ml vial SUBQ SCH (11:06)
--- NOTE | 2017-02-06 14:19 | Internal Med Progress Note ---
Subjective Date of Service: Feb 06, 2017 Physician Name Khushi Bae Attending Physician Myles Lindquist MD Current Medications Medications (Trade) Dose Ordered Sig/Carlos Route PRN Reason Start Time Stop Time Status Last Admin Dose Admin Acetaminophen (Tylenol) 650 mg Q4H PRN ORAL Mild Pain (Pain Scale 1-3) 02/03/17 22:15 03/05/17 22:14 Acetaminophen (Tylenol) 650 mg Q4H PRN ORAL fever 02/03/17 22:15 03/05/17 22:14 Acetaminophen (Tylenol) 650 mg Q4H PRN RECTAL Mild Pain (Pain Scale 1-3) 02/03/17 22:15 03/05/17 22:14 Anastrozole (Arimidex) 1 mg DAILY ORAL 02/04/17 09:00 03/06/17 08:59 02/06/17 09:22 Aspirin (Ecotrin) 81 mg DAILY ORAL 02/04/17 09:00 03/06/17 08:59 02/06/17 09:23 Dextrose (Dextrose 50%) STAT PRN IV Hypoglycemia 02/03/17 22:15 03/05/17 22:14 Dextrose/ Electrolytes 1,000 ml @ 75 mls/hr [id number] IV 02/03/17 23:11 03/05/17 23:10 02/05/17 20:23 Digoxin (Lanoxin) 0.25 mg DAILY ORAL 02/05/17 09:00 03/07/17 08:59 02/06/17 09:23 Enoxaparin Sodium (Lovenox) 70 mg Q12H SUBQ 02/04/17 11:00 03/06/17 10:59 02/06/17 11:06 Enoxaparin Sodium (Lovenox) 100 mg Q12H SUBQ 02/04/17 11:00 03/06/17 10:59 02/06/17 11:05 Ibuprofen (Advil) 600 mg Q8H PRN ORAL For Pain 02/03/17 22:15 03/05/17 22:14 Losartan Potassium (Cozaar) 25 mg DAILY ORAL 02/05/17 09:00 03/07/17 08:59 02/06/17 09:22 Metoprolol Tartrate (Lopressor) 50 mg Q12HR ORAL 02/05/17 21:00 03/07/17 20:59 02/06/17 09:23 Nitroglycerin (Ntg) 0.4 mg Q5M PRN SL Prn Chest Pain 02/03/17 22:15 03/05/17 22:14 Ondansetron HCl (Zofran) 4 mg Q6H PRN IVP Nausea & Vomiting 02/03/17 22:15 03/05/17 22:14 Potassium Chloride (K-Dur) 20 meq DAILY ORAL 02/04/17 09:00 03/06/17 08:59 02/06/17 09:23 Spironolactone (Aldactone) 25 mg DAILY ORAL 02/04/17 09:00 03/06/17 08:59 02/06/17 09:22 Warfarin Sodium (Coumadin per pharmacy) 1 ea DAILY PRN MISC Per rx protocol 02/05/17 17:15 03/07/17 17:14 Warfarin Sodium (Coumadin) 5 mg COUMADIN ONCE ORAL 02/06/17 17:00 02/06/17 17:01 Zolpidem Tartrate (Ambien) 5 mg DAILYPRN PRN ORAL Insomnia 02/03/17 22:15 02/10/17 22:14 02/04/17 01:31 Allergies: Coded Allergies: LISINOPRIL (Verified Allergy, Unknown, 02/03/17) PENICILLINS (Verified Allergy, Unknown, 02/03/17) ROS Limited/Unobtainable: No Constitutional: Reports: no symptoms HEENT: Reports: no symptoms Cardiovascular: Reports: no symptoms Respiratory: Reports: no symptoms Gastrointestinal/Abdominal: Reports: no symptoms Genitourinary: Reports: no symptoms Neurologic/Psychiatric: Reports: no symptoms Subjective 57 YO F admitted with syncopal episode. Now atrial fibrillation with rapid ventricular rate and DVT left leg. Cover for Int Barbara Lindquist. Objective Last Vital Signs Date Time Temp Pulse Resp B/P (MAP) Pulse Ox O2 Delivery O2 Flow Rate FiO2 02/06/17 12:00 97.0 95 18 136/83 99 Room Air Laboratory Tests Test 02/06/17 04:05 Prothrombin Time 11.0 SEC (9.30-11.50) Prothromb Time International Ratio 1.1 (0.9-1.1) Intake and Output 02/05/17 02/06/17 19:00 07:00 Intake Total 575 ml 875 ml Balance 575 ml 875 ml Intake Oral 500 ml IV Total 75 ml 875 ml # Voids 3 Objective General Appearance: WD/WN, no apparent distress, alert, obese EENT: PERRL/EOMI, normal ENT inspection, TMs normal Neck: non-tender, normal alignment, supple, normal inspection Cardiovascular: normal peripheral pulses, normal rate, no gallop/murmur, no JVD , irregularly irregular Respiratory/Chest: chest wall non-tender, lungs clear, normal breath sounds, no respiratory distress, no accessory muscle use Abdomen: normal bowel sounds, non tender, soft, no organomegaly, no mass Extremities: normal range of motion 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 See hematology note. (2) Diabetes mellitus, type II (3) HTN (hypertension) Assessment & Plan: Continue felodipine (4) Breast cancer, right (5) Obesity (6) Syncope (7) Atrial fibrillation with rapid ventricular response Assessment & Plan: Continues tachycaardic. Continue digoxin and metoprolol. see cardiology note. Assessment/Plan Discharge plan: Discharge to [facility] when bed avail. KHUSHI BAE Feb 06, 2017 14:19
[2017-02-06] MEDS ORDERED: Warfarin Sodium 5mg ORAL ONE (17:00)
--- NOTE | 2017-02-06 20:06 | General Progress Note ---
Assessment/Plan Assessment/Plan Assessment/Plan # Lower extremity deep vein thrombosis, on anticoagulation --> continue lovenox and coumadin, inr goal 2-3 # History of breast cancer. is in remission # Newly diagnosed atrial fibrillation with rapid ventricular response. --> continue anticoag and management per cardiology # Cardiomyopathy with ejection fraction was 45%. Continue Aldactone and metoprolol, Diovan and Lasix and digoxin as well. # History of hypertension. Continue current medical regimen per cards Subjective Allergies: Coded Allergies: LISINOPRIL (Verified Allergy, Unknown, 02/03/17) PENICILLINS (Verified Allergy, Unknown, 02/03/17) All Systems: reviewed and negative except above Subjective to be transferred to [place] Objective Last 24 Hour Vital Signs Date Time Temp Pulse Resp B/P (MAP) Pulse Ox O2 Delivery O2 Flow Rate FiO2 02/06/17 19:20 97.9 101 20 125/93 100 Room Air 02/06/17 16:00 79 02/06/17 16:00 97.8 80 18 128/71 98 Room Air 02/06/17 12:00 84 02/06/17 12:00 97.0 95 18 136/83 99 Room Air 02/06/17 09:23 80 125/73 02/06/17 09:23 80 02/06/17 09:22 125/73 02/06/17 08:00 98.4 80 18 125/73 100 Room Air 02/06/17 08:00 84 02/06/17 04:00 69 02/06/17 04:00 97.7 80 20 116/70 99 Room Air 02/06/17 00:00 97.7 86 20 110/72 98 Room Air 02/06/17 00:00 74 02/05/17 20:24 100 124/62 Intake and Output 02/05/17 02/06/17 19:00 07:00 Intake Total 575 ml 875 ml Balance 575 ml 875 ml Intake Oral 500 ml IV Total 75 ml 875 ml # Voids 3 Laboratory Tests 02/06/17 04:05: Prothrombin Time 11.0, Prothromb Time International Ratio 1.1 Height (Feet): 5 Height (Inches): 6.00 Weight (Pounds): 380 General Appearance: alert EENT: normal ENT inspection Neck: supple Cardiovascular: regular rhythm Respiratory/Chest: no respiratory distress Abdomen: no organomegaly Pelvis: normal rectal exam Extremities: non-tender Edema: 1+ Arm (L), 1+ Arm (R), 1+ Leg (L), 1+ Leg (R) Neurologic: alert Skin: warm/dry Charles Black Feb 06, 2017 20:06
--- NOTE | 2017-02-07 08:29 | Diagnostic Imaging Report ---
Indication: Abdominal pain Technique: US ABD Complete; multiplanar grayscale and color Doppler imaging of the abdomen Comparison: None Findings: Limited evaluation due to overlying bowel gas. Imaged portions of the pancreatic head are unremarkable in appearance. The body and tail are not well seen. Liver is normal in size of the right lobe measuring 14.5 cm in length. No focal hepatic mass lesion is appreciated sonographically. The liver contour appears smooth. Common bile duct measures 2.9 mm in diameter. No definite cholelithiasis appreciated. No gallbladder wall thickening or pericholecystic fluid. Limited evaluation of the right kidney. A simple appearing cyst in the upper pole measures up to 6.5 cm in diameter. Left kidney is normal in appearance. No evidence of hydronephrosis bilaterally. Spleen is unremarkable in size and appearance. There is no ascites. Imaged portions of the IVC are normal in caliber. The abdominal aorta is not visualized due to overlying bowel gas. Impression: Limited exam due to overlying bowel gas. No definite sonographic evidence of acute intra-abdominal pathology. Specifically, no evidence to suggest cholelithiasis or acute cholecystitis. 6 cm simple appearing cyst in the upper pole the right kidney. No evidence of hydronephrosis bilaterally.
--- NOTE | 2017-02-08 17:30 | Consultation ---
DATE OF CONSULTATION: 02/05/2017 HEMATOLOGY/ONCOLOGY CONSULTATION CONSULTING PHYSICIAN: Charles Black M.D. REFERRING PHYSICIANS: Cholo Coreas M.D. and Myles Lindquist M.D. REASON FOR CONSULTATION: Evaluation of DVT. IDENTIFICATION DATA: Dear Dr. Lindquist: The patient is a pleasant 57-year-old female with past medical history significant for type 2 diabetes mellitus, history of breast cancer, and hypertension, at this time presents to [facility] with episode of syncope. Apparently, was seen by PCP complaining of upper respiratory infection. Blood pressure was elevated . She is taking her blood pressure medications. Currently, her blood pressure has improved. The patient passed out for approximately 5 minutes. The patient awoke with slurred speech. Hematology Service was consulted for further evaluation and treatment given the patient has evidence of DVT. The patient was found to have atrial fibrillation with RVR, has been seen by Dr. Green, and currently is off of anticoagulation given developing anemia. PAST MEDICAL HISTORY: As noted above. PAST SURGICAL HISTORY: Lumpectomy, right breast, 2013. MEDICATIONS: Flonase, potassium chloride, Flexeril, naproxen, ibuprofen, Arimidex, felodipine, spironolactone, multivitamin, and aspirin. Current medications reviewed. The patient is currently on Lovenox, spironolactone, and aspirin. ALLERGIES: Lisinopril and penicillin. 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 No alcohol, tobacco, or illicit drug use. REVIEW OF SYSTEMS: Negative besides as noted in the HPI. PHYSICAL EXAMINATION: GENERAL: No acute distress. VITAL SIGNS: Reviewed. PULMONARY: Decreased breath sounds. CARDIOVASCULAR: Regular rate. No S3 or S4. ABDOMEN: Soft, nontender, and nondistended. EXTREMITIES: 1+ edema. LABORATORY DATA: WBC 8.4, hemoglobin 14.7, and platelet count 175,000. BUN 13 and creatinine 0.9. PTT of 35. ASSESSMENT AND RECOMMENDATIONS: 1. DVT of the left lower extremity. Continue Lovenox. Begin the patient on Coumadin. 2. Leukopenia. Evaluate with hepatitis panel, HIV, as well as ultrasound of the abdomen. Currently stable. 3. Breast cancer history, status post lumpectomy. Currently improved. No evidence of recurrence. 4. Obesity. 5. Atrial fibrillation with RVR, continues to be tachycardic. She is on digoxin and the patient is being anticoagulated. I appreciate care by information coordinator. I appreciate the consultation. Charles Black M.D. DR: Kaela JOB#: [id number] CC:
--- NOTE | 2017-02-10 13:34 | Discharge Summary ---
Discharge Summary Hospital Course Date of Admission Feb 03, 2017 at 19:36 Date of Discharge Feb 06, 2017 at 22:30 Admitting Diagnosis afib with rvr HPI Kimberlee Herbert is a 57 year old female who was admitted on Feb 03, 2017 at 19:36 for Atrial Fibrillation With Rapid Ventricular Rate Hospital Course dc summary #[id number] Discharge Condition Upon Discharge: stable Discharge Disposition Patient was discharged to Acute Care Facility(02)-[facility] Discharge Diagnoses: Discharge Instructions Discharge Instructions Special Instructions I have been assigned to complete a D/C Summary on this account. I was not involved in the patient management Leonor Mooney NP (Vanchtein) Feb 10, 2017 13:34
--- NOTE | 2017-02-11 09:45 | Discharge Summary 2 SIG ---
DATE OF ADMISSION: 02/03/2017 DATE OF DISCHARGE: 02/06/2017 REASON FOR ADMISSION: 57-year-old female with history of diabetes, hypertension, right breast CA, presented to the emergency department with complaint of a near syncopal episode. She was with friends and felt very faint, became unresponsive, but did not fall since she was on the wheelchair. Episode lasted three to four minutes. In ED the patient was found to be in atrial fibrillation with rapid ventricular response. The patient denied prior history of atrial fibrillation. The patient was taking aspirin. The patient denied ever having a clot in her legs or lungs. No recent immobilization or surgery. The patient was tachycardic, but not hypoxic. Airway was patent. IV access obtained. Troponin was negative. The patient was started on IV fluids. CT of the head was hold since there was no history of trauma or other neurological signs or symptoms. Systolic blood pressure was in the 100s. The patient was given fluid for possibly dehydration. 0.5 mg of IV digoxin given. Heart rate improved. Chest x-ray revealed cardiomegaly, otherwise no acute cardiopulmonary pathology. The patient had no leukocytosis. Stable hemoglobin and hematocrit. Stable electrolytes. Creatinine -1.3. Urinalysis negative. The patient was admitted to [facility] for further management with diagnosis of atrial fibrillation with rapid ventricular response and syncope. HOSPITAL COURSE: The patient was admitted to [facility]. Cardiology consult was requested. Serial troponin were negative. EKG revealed no acute ischemic changes. The patient was ruled out for acute [place]. Echocardiogram revealed ejection fraction of 45% consistent with cardiomyopathy. Medical management of congestive heart failure initiated with beta-gerson, Diovan, Aldactone, and Lasix. Heart rate was controlled with beta-gerson and digoxin. Venous duplex of bilateral lower extremity revealed nonocclusive thrombosis in the distal common femoral to proximal superficial femoral vein on the left leg. The patient was started on anticoagulation for acute DVT of left lower extremity as well as atrial fibrillation, with Lovenox and Coumadin to bridge to therapeutic INR. Animal Cytologist closely followed the patient and agreed anticoagulation management. Blood pressure was managed with current regimen and was stable. Arimidex was continued. The patient status post lumpectomy for right breast cancer. Blood sugar was managed with sliding scale of insulin and remained stable. INR was still not therapeutic prior to discharge. The patient was on Lovenox and Coumadin. Bed was secured in the [facility]. The patient was transferred to [facility] as per insurance. FINAL DIAGNOSES: 1. Syncope (probably due to the acute fibrillation with rapid ventricular response and possibly also mild dehydration since the patient was initially hypotensive). 2. Atrial fibrillation with rapid ventricular response, newly diagnosed. 3. Acute deep vein thrombosis, left lower extremity common femoral vein. 4. Cardiomyopathy with ejection fraction 45%. 5. Diabetes mellitus. 6. Hypertension. 7. History of right breast carcinoma with lumpectomy. 8. Obesity. DISCHARGE MEDICATIONS: List of medication was sent to admitting facility. DISCHARGE INSTRUCTIONS: The patient was transferred to [facility] as per insurance. Follow up with medical doctor at the accepting facility. Myles Lindquist M.D. I have been assigned to dictate discharge summary on this account and I was not involved in the patient's management. Leonor Mayfieldshirin N.PCharley DR: BEKAH JOB#: [id number] CC: LIAT
--- NOTE | 2017-02-11 13:15 | Diagnostic Imaging Report ---
APPROVED REPORT CPT Code: 04306 Present Symptoms Lower Extremity Pain: Comments: Hx HTN, A-fib. RIGHT LEG: Venous imaging reveals a patent deep venous system. There is no evidence of thrombus within the femoral, popliteal or tibial segments. The greater saphenous vein is also within normal limits. Doppler indicates normal spontaneous flow within these segments. The calf veins were not well visualized due to vessel depth. LEFT LEG: Venous imaging reveals acute, non-occlusive thrombus in the distal common femoral to proximal superficial femoral vein. There is no evidence of thrombus within the mid to distal superficial femoral, popliteal or tibial segments. The greater saphenous vein is also within normal limits. Doppler indicates normal spontaneous flow within these segments. The calf veins were not well visualized due to vessel depth. MONY Fuentes was informed of abnormal results at 12:03 hrs.
--- NOTE | 2017-02-15 21:47 | Cardiology Report ---
APPROVED REPORT EXAM: Two-dimensional and M-mode echocardiogram with Doppler and color Doppler. INDICATION ABNORMAL CARD [facility] STUDY M-Mode DIMENSIONS IVSd1.3 (0.7-1.1cm)Left Atrium (MM)3.1 (1.6-4.0cm) LVDd4.9 (3.5-5.6cm)Aortic Root3.2 (2.0-3.7cm) PWd1.3 (0.7-1.1cm)Aortic Cusp Exc.1.9 (1.5-2.0cm) IVSs1.2 cm LVDs3.3 (2.5-4.0cm) PWs1.6 cm Technically difficult study due to poor parasternal acoustical windows. Study quality precludes accurate assessment of regional wall motion. Mild left ventricular enlargement. Left ventricular ejection fraction estimated to be moderately reduced. No evidence of left ventricular hypertrophy. No evidence of pericardial effusion Right cardiac chamber sizes are within normal limits. Focal aortic valve sclerosis with adequate cusp excursion. Thickened mitral valve leaflets with normal excursion. Mitral annulus and aortic root calcification. Pulmonic valve not well visualized. Normal tricuspid valve structure. IVC at size 2.0 with physiologic collapse. A color flow and spectral Doppler study was performed and revealed: No aortic regurgitation. Mild mitral regurgitation. Mild tricuspid regurgitation. Tricuspid systolic velocities suggests peak right ventricular systolic pressure of 30 mmHg Trace Pulmonic regurgitation present.
== END 2017-02-06 22:30 | disposition short-term general hospital (02) | DRG 309 ==
LOC: EDBD 16:51 → EMR 18:51 → EDBEDREQ 19:32 → EDBEDREQSVC 19:32 → 2W 19:36 → EDBEDREQ 20:30 → ENRESERV 20:38
DX: I48.91 Unspecified atrial fibrillation (principal); Z68.44 Body mass index [BMI] 60.0-69.9, adult; I11.0 Hypertensive heart disease with heart failure; I82.412 Acute embolism and thrombosis of left femoral vein; E11.9 Type 2 diabetes mellitus without complications; Z85.3 Personal history of malignant neoplasm of breast; Z79.82 Long term (current) use of aspirin; Z88.0 Allergy status to penicillin; R27.0 Ataxia, unspecified; E66.9 Obesity, unspecified; I51.7 Cardiomegaly; E86.0 Dehydration
CPT/HCPCS: 36415; 71010; 76700; 80048; 80053; 81003; 82465; 82962; 83735; 83880; 84100; 84443; 84484; 85025; 85610; 85730; 86703; 86705; 86709; 86803; 87340; 93005; 93306; 93970; J8499